=== PATIENT | female | born 1990 ===

== ENCOUNTER → 2016-08-16 | Outpatient (CLI) | payer OTHER ==
--- NOTE | 2016-08-16 11:59 | DX ---
Left foot series 3 views limited weight-bearing 1036 hours. History: Recent osteotomy left first toe on August 01, 2016. Findings: Comparison to June 21, 2016. Osteotomy is seen mid shaft left first toe proximal phalanx with C-shaped clamp across this bony defe ct with good alignment. Two small caliber screws are once again identified across the distal shaft of the first metatarsal from prior osteotomy and bunionectomy. The remainder of the osseous structures are normal in appearance. No periosteal thickening is seen. Mild soft tissues swelling persists over the osteotomy. Impression: 1. Good alignment of left first toe following recent osteotomy midshaft first proximal phalanx and re mote osteotomy distal shaft first metatarsal.
== END ==
LOC: BMCIMAGING 10:31
PROVIDERS: ATTEND Podiatrist Foot & Ankle Surgery
DX: Z47.89 Encounter for other orthopedic aftercare (principal)